=== PATIENT | male | born 1970 | race Caucasian/White ===

== ENCOUNTER 2021-06-13 07:09 | Day surgery (SDC) | payer OTHER ==
[~2021-06-13 07:09] MED LIST: Lactated Ringers 1,000 ML IV SCH; Propofol 200 MG/20 ML SDV ONE; fentaNYL 100 MCG/2 ML SDV ONE
--- NOTE | 2021-06-13 07:39 | PCM.PREANE ---
Preanesthetic Assessment - Procedure Proposed Procedure: Colonoscopy - Anesthesia/Transfusion/Family Hx Anesthesia History: Prior Anesthesia Without Reaction Transfusion History: No Prior Transfusion(s) - Review of Systems General: No Symptoms (Chews Tobacco) Pulmonary: No Symptoms Cardiovascular: No Symptoms Gastrointestinal: No Symptoms Neurological: No Symptoms Other: Reports: None - Physical Assessment NPO Status Date: 06/11/21 NPO Status Time: 19:00 Vital Signs: Last Vital Signs Temp 97.2 F 06/13/21 07:10 Pulse 78 06/13/21 07:10 Resp 16 06/13/21 07:10 BP 118/81 06/13/21 07:10 Pulse Ox 94 L 06/13/21 07:10 Height: 6 ft 2 in Weight: 104.326 kg ASA Class: 2 Mental Status: Alert & Oriented x3 Airway Class: Mallampati = 2 Dentition: Reports: Normal Dentition Thyro-Mental Finger Breadths: 3 Mouth Opening Finger Breadths: 3 ROM/Head Extension: Full Lungs: Clear to Auscultation, Normal Respiratory Effort Cardiovascular: Regular Rate, Regular Rhythm - Allergies Allergies/Adverse Reactions: Allergies Allergy/AdvReac Type Severity Reaction Status Date / Time itraconazole Allergy Hives Verified 06/07/21 08:03 - Acknowledgements Anesthesia Type Planned: General Anesthesia Pt an Appropriate Candidate for the Planned Anesthesia: Yes Alternatives and Risks of Anesthesia Discussed w Pt/Guardian: Yes Pt/Guardian Understands and Agrees with Anesthesia Plan: Yes PreAnesthesia Questionnaire HEENT History: Reports: Other (See Below) Other HEENT History: reading glasses, dental implant Cardiovascular History: Reports: None Respiratory History: Reports: None Gastrointestinal History: Reports: None Genitourinary History: Reports: None Musculoskeletal History: Reports: None Neurological History: Reports: None Psychiatric History: Reports: None Endocrine/Metabolic History: Reports: Obesity/BMI 30+ Hematologic History: Reports: None Immunologic History: Reports: None Oncologic (Cancer) History: Reports: None Dermatologic History: Reports: None - Past Surgical History Head Surgeries/Procedures: Reports: None HEENT Surgical History: Reports: None Cardiovascular Surgical History: Reports: None Respiratory Surgical History: Reports: None GI Surgical History: Reports: None Male Surgical History: Reports: None Endocrine Surgical History: Reports: None Neurological Surgical History: Reports: None Musculoskeletal Surgical History: Reports: Shoulder Surgery Other Musculoskeletal Surgeries/Procedures:: RTCR Oncologic Surgical History: Reports: None Dermatological Surgical History: Reports: None - SUBSTANCE USE Tobacco Use Within Last Twelve Months: Smokeless Tobacco, Other (See Below) - HOME MEDS Home Medications: Home Meds Sildenafil [Revatio] 2 - 4 tab PO ASDIRECTED PRN 06/07/21 [History] - CURRENT (IN HOUSE) MEDS Current Meds: Current Medications Lactated Ringer's (Ringers, Lactated) 1,000 mls @ 125 mls/hr IV ASDIRECTED [facility] Last Admin: 06/13/21 07:34 Dose: 125 mls/hr Documented by: Discontinued Medications Fentanyl (Fentanyl 100 Mcg/2 Ml Sdv) Confirm Administered Dose 100 mcg .ROUTE .STK-MED ONE Stop: 06/13/21 06:58 Propofol (Propofol 200 Mg/20 Ml Sdv) Confirm Administered Dose 400 mg .ROUTE .STK-MED ONE Stop: 06/13/21 06:58
--- NOTE | 2021-06-13 09:04 | PCM.OPNOTE ---
- General Post-Op/Procedure Note Date of Surgery/Procedure: 06/13/21 Operative Procedure(s): colonoscopy with polypectomy Findings: colon polyp at 60 cm and in the rectal vault dictation number [id number] Pre Op Diagnosis: screening colonoscopy Post-Op Diagnosis: polyps at 60 cm and in rectal vault Primary Surgeon: Florentino Franklin Pathology: polyps Complications: None Condition: Good
--- NOTE | 2021-06-13 09:08 | PCM.POSTAN ---
POST ANESTHESIA ASSESSMENT - MENTAL STATUS Mental Status: Alert, Oriented - VITAL SIGNS Vital Signs: Last Vital Signs Temp 97.2 F 06/13/21 07:10 Pulse 78 06/13/21 07:10 Resp 16 06/13/21 07:10 BP 118/81 06/13/21 07:10 Pulse Ox 94 L 06/13/21 07:10 - RESPIRATORY Respiratory Status: Respiratory Rate WNL, Airway Patent, O2 Saturation Stable - CARDIOVASCULAR CV Status: Pulse Rate WNL, Blood Pressure Stable - GASTROINTESTINAL GI Status: No Symptoms - PAIN Pain Score: 0 - POST OP HYDRATION Hydration Status: Adequate & Stable
--- NOTE | 2021-06-13 09:21 | PCM48HPAN ---
Post Anesthesia Note - EVALUATION WITHIN 48HRS OF ANESTHETIC Vital Signs in Normal Range: Yes Patient Participated in Evaluation: Yes Respiratory Function Stable: Yes Airway Patent: Yes Cardiovascular Function Stable: Yes Hydration Status Stable: Yes Pain Control Satisfactory: Yes Nausea and Vomiting Control Satisfactory: Yes Mental Status Recovered: Yes Vital Signs: Last Vital Signs Temp 97.2 F 06/13/21 07:10 Pulse 64 06/13/21 09:19 Resp 15 06/13/21 09:19 BP 108/65 06/13/21 09:19 Pulse Ox 94 L 06/13/21 09:19 - COMMENTS/OBSERVATIONS Free Text/Narrative:: Pt doing well post-op. VSS. No apparent anesthetic complications. Dr. Isaak Chan
--- NOTE | 2021-06-15 01:41 | OR ---
SURGEON: SASCHA BLAKE MD DATE OF PROCEDURE: 06/13/2021 PREOPERATIVE DIAGNOSIS: Screening colonoscopy. POSTOPERATIVE DIAGNOSIS: Colon polyps were at 60 cm and two in the rectal vault. PROCEDURES PERFORMED: 1. Colonoscopy. 2. Cold biopsy polypectomies. PRIMARY SURGEON: Sascha Blake MD ANESTHESIA: With Anesthesiology. EXTENT OF COLONOSCOPY: To the cecum. Bowel prep was very good. LIMITATIONS: None. REASON FOR PROCEDURE: The patient is a pleasant 51-year-old gentleman who has never had any colonoscopy before. He denies any blood in stool. Denies family history of colon cancer. PROCEDURE IN DETAIL: Physical examination was performed. The major risks and benefits associated with the procedure were explained to the patient in detail. The patient verbalized understanding and agreement with the same. The patient was then connected to the appropriate monitoring device and IV started. EKG, pulse, pulse oximetry, blood pressure, and capnography were monitored throughout the procedure. Continuous oxygen and sedation were provided by the anesthesiologist. The patient was placed in left lateral decubitus position. Sedation was began. After adequate sedation was achieved, a digital rectal exam was performed. No rectal masses or polyps felt. Now, a well-lubricated Olympus colonoscope was inserted in the rectum, advanced under direct visualization to the level of the cecum. Cecum was identified by both visual and anatomic landmarks. Photographs were taken of the cecal cap. The scope was then slowly withdrawn in a somewhat circular fashion looking at the color, texture, anatomy, and integrity of the mucosa from the cecum to the anal canal. The patient did have some light liquid stool, which was suctioned and irrigated out for a good look at the mucosa. The patient had a small flat polyp at 60 cm, seemed to be more kind of in the descending colon just past the splenic flexure. This was removed with a cold biopsy polypectomy. It appeared to be removed completely with good hemostasis. Scope was then withdrawn. The patient then had another two polyps right in the rectal vault. These were both removed with cold biopsy polypectomy. Appeared to have a good hemostasis. Scope was retroflexed in the rectum. Scope was completely removed, procedure was terminated. ENDOSCOPIC DIAGNOSIS: Colon polyps at 60 cm and in the rectal vault. RECOMMENDATIONS: Followup colonoscopy will depend on the pathology, but most likely another one in 5 years. Sooner if he develops signs or symptoms such as change in bowel habits or blood in stool. CHINO / MICHELLE /[id number]
== END 2021-06-13 09:45 | disposition home or self-care (01) ==
LOC: MW.SDS 07:09
PROVIDERS: ATTEND Surgery
DX: Z12.11 Encounter for screening for malignant neoplasm of colon (principal); K63.5 Polyp of colon; K62.1 Rectal polyp; Z88.8 Allergy status to other drugs, medicaments and biological substances
CPT/HCPCS: 45380; 88305; J2704; J3010; J7120; 00812